=== PATIENT | male | born 1970 | race Two or more races ===

== ENCOUNTER 2024-08-23 07:51 | Inpatient (IN) | payer OTHER ==
[~2024-08-23] VITALS: Ht 160 cm; Wt 59.0 kg
[2024-08-23 09:00] VITALS: BP 128/85; TEMP 98.4; O2SAT 99
[2024-08-23] MEDS ORDERED: ARIP300S3 IM (09:07)
[2024-08-23] MEDS: ATORVASTATIN 10 MG TABLET PO SCH (09:48)
[2024-08-23] MEDS: ASPIRIN 81 MG TAB.CHEW PO SCH (09:48)
[2024-08-23] MEDS: ENOXAPARIN SODIUM 60 MG/0.6 ML DISP.SYRIN SQ SCH (10:06)
[2024-08-23] MEDS: METOPROLOL TARTRATE 50 MG TABLET PO SCH (11:48)
[2024-08-23 12:00] VITALS: BP 133/64; TEMP 98.6
[2024-08-23 12:45] LABS: CALCIUM, SERUM 8.5 mg/dL (8.5-10.1); CREATININE 0.8 mg/dL (0.6-1.3); POTASSIUM 4.2 mmol/L (3.5-5.1)
[2024-08-23] MEDS: ACETAMINOPHEN 650 MG/20.3 ML UDC NG PRN (15:07)
[2024-08-23 16:00] VITALS: BP 121/82; TEMP 98.4; O2SAT 99
[2024-08-23 20:22] VITALS: BP 115/88; TEMP 98.1; O2SAT 99
[2024-08-23 23:45] VITALS: BP 120/68; TEMP 98.2; O2SAT 96
[2024-08-24 04:13] VITALS: BP 137/93; TEMP 98.2; O2SAT 98
[2024-08-24 06:57] LABS: BASOPHILS # (AUTO) 0.1 K/uL (0.0-0.2); BASOPHILS % (AUTO) 0.9 % (0.0-2.0); EOSINOPHILS # (AUTO) 0.2 K/uL (0.0-0.7); EOSINOPHILS % (AUTO) 2.8 % (0.0-6.0); HEMATOCRIT 45 % (39-51); HEMOGLOBIN 15.1 g/dL (13.5-17.5); LYMPHOCYTES # (AUTO) 2.5 K/uL (0.8-4.8); LYMPHOCYTES % (AUTO) 40.5 % (20.0-44.0); MEAN CORPUSCULAR HEMOGLOBIN 31 PG (26.0-33.0); MEAN CORPUSCULAR HGB CONC 34 g/dl (31.0-36.0); MEAN CORPUSCULAR VOLUME 91 fL (80-96); MONOCYTES # (AUTO) 0.5 K/uL (0.1-1.30); MONOCYTES % (AUTO) 7.6 % (2.0-12.0); NEUTROPHILS % (AUTO) 48.2 % (43.0-81.0); PLATELET COUNT (AUTO) 155 K/uL (150-450); RED BLOOD CELL COUNT(AUTO) 4.91 MIL/uL (4.5-6.0); RED CELL DISTRIBUTION WIDTH 14.4 % (11.5-15.0); WHITE BLOOD COUNT (AUTO) 6.1 K/uL (4.3-11.0)
[2024-08-24 07:05] LABS: ALANINE AMINOTRANSFERASE 82 U/L (12-78); ALBUMIN 3.4 g/dL (3.4-5.0); ALKALINE PHOSPHATASE 78 U/L (46-116); ASPARTATE AMINOTRANSFERASE 25 U/L (15-37); BILIRUBIN,TOTAL 0.7 mg/dL (0.2-1.0); CALCIUM, SERUM 8.6 mg/dL (8.5-10.1); CARBON DIOXIDE 27 mmol/L (21-32); CHLORIDE 107 mmol/L (98-107); GLUCOSE 91 mg/dL (74-106); MAGNESIUM 1.8 mg/dL (1.8-2.4); PHOSPHORUS 3.5 mg/dL (2.5-4.9); POTASSIUM 3.9 mmol/L (3.5-5.1); SODIUM SERUM 140 mmol/L (136-145); TOTAL PROTEIN, SERUM 7.1 g/dL (6.4-8.2); UREA NITROGEN, BLOOD 10 mg/dL (7-18)
[2024-08-24 07:30] VITALS: BP 121/83; TEMP 98.4; O2SAT 100
[2024-08-24 09:33] LABS: CHOLESTEROL 197 mg/dL (<200); HDL CHOLESTEROL 52 mg/dL (40-60); LDL 119 mg/dL (0-99); TRIGLYCERIDES 130 mg/dL (30-150)
[2024-08-24] MEDS ORDERED: IOHEXOL-350 100 ML VIAL IV ONE (10:48)
[2024-08-24] MEDS ORDERED: CT SWABBABLE VALVE TRANS SET 1 EA INFUS.SET MC ONE (10:49)
[2024-08-24] MEDS ORDERED: NITROGLYCERIN 0.4 MG/TAB BOTTLE ONE (10:49)
[2024-08-24] MEDS ORDERED: IV NS 0.9% 250 ML IV ONE (10:49)
[2024-08-24] MEDS ORDERED: METOPROLOL TARTRATE INJ 5 MG/5 ML AMPUL IVP PRN (11:00)
[2024-08-24] MEDS: NITROGLYCERIN 0.4 MG/TAB BOTTLE SL ONE (11:02)
[2024-08-24 16:00] VITALS: BP 134/87; TEMP 98.4; O2SAT 99
[2024-08-24 20:00] VITALS: BP 123/107; TEMP 98.6; O2SAT 99
[2024-08-24 22:11] VITALS: BP 123/107; TEMP 98.6; O2SAT 99
[2024-08-25] VITALS: BP 127/87; TEMP 98.7; O2SAT 99
[2024-08-25 04:00] VITALS: BP 144/91; TEMP 98.1; O2SAT 99
[2024-08-25 08:00] VITALS: BP 130/84; TEMP 97.7; O2SAT 100
[2024-08-25 12:00] VITALS: BP 135/88; TEMP 99; O2SAT 100
[2024-08-25 16:00] VITALS: BP 132/90; TEMP 98.4; O2SAT 99
[2024-08-25 20:00] VITALS: BP 154/94; TEMP 97.9; O2SAT 100
[2024-08-26] VITALS (11 sets, daily range): BP systolic 108–154; BP diastolic 65–94; TEMP 97.9–98.4; O2SAT 97–100
[2024-08-26 06:49] LABS: INR 1.05 (0.91-1.10); PROTHROMBIN TIME 11.1 SECS (9.2-11.1)
[2024-08-26 07:01] LABS: BILIRUBIN,TOTAL 0.7 mg/dL (0.2-1.0); CALCIUM, SERUM 9.4 mg/dL (8.5-10.1); CREATININE 0.9 mg/dL (0.6-1.3); PHOSPHORUS 4.3 mg/dL (2.5-4.9); POTASSIUM 3.9 mmol/L (3.5-5.1); TOTAL PROTEIN, SERUM 8.2 g/dL (6.4-8.2)
[2024-08-26 07:04] LABS: BASOPHILS % (AUTO) 0.8 % (0.0-2.0); EOSINOPHILS # (AUTO) 0.2 K/uL (0.0-0.7); HEMATOCRIT 46 % (39-51); HEMOGLOBIN 15.6 g/dL (13.5-17.5); LYMPHOCYTES # (AUTO) 2.4 K/uL (0.8-4.8); LYMPHOCYTES % (AUTO) 40.2 % (20.0-44.0); MEAN CORPUSCULAR HEMOGLOBIN 31 PG (26.0-33.0); MEAN CORPUSCULAR HGB CONC 34 g/dl (31.0-36.0); MEAN CORPUSCULAR VOLUME 92 fL (80-96); MONOCYTES # (AUTO) 0.5 K/uL (0.1-1.30); MONOCYTES % (AUTO) 8.6 % (2.0-12.0); NEUTROPHILS # (AUTO) 2.9 K/uL (1.8-8.9); NEUTROPHILS % (AUTO) 47.4 % (43.0-81.0); RED BLOOD CELL COUNT(AUTO) 5.03 MIL/uL (4.5-6.0); RED CELL DISTRIBUTION WIDTH 14.4 % (11.5-15.0)
[2024-08-26 08:12] LABS: PLATELET COUNT (AUTO) 147 K/uL (150-450)
[2024-08-26] MEDS ORDERED: LIDOCAINE HCL/MPF 1% 30 ML VIAL IJ ONE (10:55)
[2024-08-26] MEDS ORDERED: IODIXANOL 150 ML IV ONE (10:55)
[2024-08-26] MEDS ORDERED: NITROGLYCERIN IN 5 % DEXTROSE 250 ML IV ONE (10:56)
[2024-08-26] MEDS ORDERED: IV NS 0.9% 500 ML IV ONE (11:25)
[2024-08-26] MEDS ORDERED: IV SET PRIMARY PUMP SET 1 EA INFUS.SET MC ONE (11:25)
[2024-08-26] MEDS ORDERED: MIDAZOLAM HCL 2 MG/2ML VIAL ONE (11:27)
[2024-08-26] MEDS ORDERED: FENTANYL PF 100MCG/2ML AMPUL ONE ×2 (11:27→12:20)
[2024-08-26] MEDS ORDERED: HEPARIN SODIUM, PORCINE 5000 UNITS/1 ML VIAL ONE (11:59)
[2024-08-26] MEDS ORDERED: TICAGRELOR 90 MG TABLET ONE (12:10)
[2024-08-26] MEDS ORDERED: METO200T3 PO (12:12)
[2024-08-26] MEDS ORDERED: ASPI-1169 PO (12:12)
[2024-08-26] MEDS ORDERED: ATOR10TA PO (12:12)
[2024-08-26] MEDS ORDERED: ADENOSINE 6 MG/2 ML VIAL ONE (12:25)
[2024-08-26] MEDS ORDERED: IV NS 0.9% 250 ML IV ONE (12:27)
[2024-08-26] MEDS ORDERED: IV NS 0.9% 100 ML BAG IV ONE (12:28)
[2024-08-26] MEDS ORDERED: IODIXANOL 320MG/ML 100 ML IV ONE (12:28)
[2024-08-26] MEDS ORDERED: HEPARIN SODIUM, PORCINE 1,000 UNIT/ML VIAL ONE (12:49)
[2024-08-26] MEDS: TICAGRELOR 90 MG TABLET PO SCH (17:27)
[2024-08-27] VITALS (12 sets, daily range): BP systolic 102–145; BP diastolic 60–92; TEMP 98.1–98.3; O2SAT 95–100
[2024-08-27] MEDS: METOPROLOL TARTRATE 50 MG TABLET PO SCH (08:20)
[2024-08-27] MEDS: ATORVASTATIN 10 MG TABLET PO SCH (08:20)
[2024-08-27] MEDS ORDERED: TICA90TA PO (10:58)
== END 2024-08-27 12:40 | disposition home or self-care (01) | DRG 174 ==
LOC: MED 07:51 → TELE 08:06 → ICU 08-26 13:38 → TELE1 08-27 09:13
PROVIDERS: ADMIT Internal Medicine
PROC: 027135Z Dilation of Coronary Artery, Two Arteries with Two Drug-eluting Intraluminal Devices, Percutaneous Approach (ICD-10-PCS; principal; 2024-08-26)
PROC: 4A023N7 Measurement of Cardiac Sampling and Pressure, Left Heart, Percutaneous Approach (ICD-10-PCS; 2024-08-26)
PROC: B211YZZ Fluoroscopy of Multiple Coronary Arteries using Other Contrast (ICD-10-PCS; 2024-08-26)
PROC: B44LZZZ Ultrasonography of Femoral Artery (ICD-10-PCS; 2024-08-26)
PROC: B34HZZZ Ultrasonography of Right Upper Extremity Arteries (ICD-10-PCS; 2024-08-26)
PROC: 02703ZZ Dilation of Coronary Artery, One Artery, Percutaneous Approach (ICD-10-PCS; 2024-08-26)
DX: I21.4 Non-ST elevation (NSTEMI) myocardial infarction (principal); F12.90 Cannabis use, unspecified, uncomplicated; I25.119 Atherosclerotic heart disease of native coronary artery with unspecified angina pectoris; F32.9 Major depressive disorder, single episode, unspecified; F41.9 Anxiety disorder, unspecified; I10 Essential (primary) hypertension; Z98.61 Coronary angioplasty status; F17.200 Nicotine dependence, unspecified, uncomplicated; I25.5 Ischemic cardiomyopathy; Z79.899 Other long term (current) drug therapy
CPT/HCPCS: 36415; 75574; 80048-TC; 80053-TC; 80061-TC; 82962-TC; 83735-TC; 84100-TC; 84484-TC; 85025-TC; 85347; 85610-TC; 85730-TC; 93307-TC; 94799-TC; A4223; G0378; J0153; J1644; J1650; J2250; J3010; J3490; J7030; J7040; J7050; Q9967

== ENCOUNTER 2024-08-27 18:13 | Inpatient (IN) | payer OTHER ==
[~2024-08-27] VITALS: Ht 165.1 cm; Wt 62.9 kg
[~2024-08-27 18:13] MED LIST: ARIP300S3 IM; ASPI-1169 PO; ATOR10TA PO; METO200T3 PO; TICA90TA PO
[2024-08-27 18:58] LABS: BASOPHILS % (AUTO) 0.6 % (0.0-2.0); EOSINOPHILS # (AUTO) 0.2 K/uL (0.0-0.7); EOSINOPHILS % (AUTO) 2.3 % (0.0-6.0); HEMATOCRIT 44 % (39-51); HEMOGLOBIN 14.9 g/dL (13.5-17.5); LYMPHOCYTES # (AUTO) 1.6 K/uL (0.8-4.8); LYMPHOCYTES % (AUTO) 18.2 % (20.0-44.0); MEAN CORPUSCULAR HEMOGLOBIN 31 PG (26.0-33.0); MEAN CORPUSCULAR HGB CONC 34 g/dl (31.0-36.0); MEAN CORPUSCULAR VOLUME 91 fL (80-96); MONOCYTES # (AUTO) 0.8 K/uL (0.1-1.30); MONOCYTES % (AUTO) 9.2 % (2.0-12.0); NEUTROPHILS # (AUTO) 6.1 K/uL (1.8-8.9); NEUTROPHILS % (AUTO) 69.7 % (43.0-81.0); PLATELET COUNT (AUTO) 149 K/uL (150-450); RED BLOOD CELL COUNT(AUTO) 4.85 MIL/uL (4.5-6.0); RED CELL DISTRIBUTION WIDTH 14.4 % (11.5-15.0); WHITE BLOOD COUNT (AUTO) 8.8 K/uL (4.3-11.0)
[2024-08-27] MEDS: IV NS 0.9% 1,000 ML BAG IV ONE ×2 (19:11)
[2024-08-27 19:38] LABS: CALCIUM, SERUM 9.3 mg/dL (8.5-10.1); CARBON DIOXIDE 29 mmol/L (21-32); CHLORIDE 103 mmol/L (98-107); CREATININE 1.1 mg/dL (0.6-1.3); GLUCOSE 109 mg/dL (74-106); POTASSIUM 4.8 mmol/L (3.5-5.1); SODIUM SERUM 140 mmol/L (136-145); UREA NITROGEN, BLOOD 21 mg/dL (7-18)
[2024-08-27] MEDS ORDERED: ACETAMINOPHEN 325 MG TABLET PO PRN (20:30)
[2024-08-27] MEDS ORDERED: ONDANSETRON HCL/PF 4 MG/2 ML VIAL IVP PRN (20:30)
[2024-08-27 21:35] VITALS: BP 111/76; TEMP 97.9; O2SAT 97
[2024-08-27] MEDS: IV NS 0.9% 1,000 ML IV PRN (22:09)
[2024-08-28] VITALS: BP 105/62; TEMP 97.7; O2SAT 100
[2024-08-28 04:00] VITALS: BP 110/63; TEMP 98.1; O2SAT 97
[2024-08-28 06:56] LABS: BASOPHILS % (AUTO) 0.3 % (0.0-2.0); EOSINOPHILS # (AUTO) 0.2 K/uL (0.0-0.7); EOSINOPHILS % (AUTO) 3.2 % (0.0-6.0); HEMATOCRIT 39 % (39-51); HEMOGLOBIN 13.1 g/dL (13.5-17.5); LYMPHOCYTES # (AUTO) 2.1 K/uL (0.8-4.8); LYMPHOCYTES % (AUTO) 28.1 % (20.0-44.0); MEAN CORPUSCULAR HEMOGLOBIN 31 PG (26.0-33.0); MEAN CORPUSCULAR HGB CONC 34 g/dl (31.0-36.0); MEAN CORPUSCULAR VOLUME 92 fL (80-96); MONOCYTES # (AUTO) 0.8 K/uL (0.1-1.30); MONOCYTES % (AUTO) 10.9 % (2.0-12.0); NEUTROPHILS # (AUTO) 4.3 K/uL (1.8-8.9); NEUTROPHILS % (AUTO) 57.5 % (43.0-81.0); PLATELET COUNT (AUTO) 135 K/uL (150-450); RED BLOOD CELL COUNT(AUTO) 4.24 MIL/uL (4.5-6.0); WHITE BLOOD COUNT (AUTO) 7.5 K/uL (4.3-11.0)
[2024-08-28 07:00] VITALS: BP 104/64; TEMP 98.1; O2SAT 99
[2024-08-28 07:10] LABS: PHOSPHORUS 3.2 mg/dL (2.5-4.9)
[2024-08-28 07:24] LABS: CALCIUM, SERUM 8.4 mg/dL (8.5-10.1); CREATININE 0.8 mg/dL (0.6-1.3); POTASSIUM 3.8 mmol/L (3.5-5.1)
[2024-08-28] MEDS: METOPROLOL SUCCINATE 50 MG TAB.SR.24H PO SCH (08:57)
[2024-08-28] MEDS: ASPIRIN 81 MG TAB.CHEW PO SCH (08:58)
[2024-08-28] MEDS: TICAGRELOR 90 MG TABLET PO SCH (08:58)
[2024-08-28] MEDS: ATORVASTATIN 10 MG TABLET PO SCH (08:58)
[2024-08-28] MEDS: PANTOPRAZOLE 40 MG VIAL IV SCH (08:58)
[2024-08-28 09:05] VITALS: BP_SYST 114; BP_SYST 92; BP_SYST 99; BP_DIAS 67; BP_DIAS 70; BP_DIAS 83
[2024-08-28 12:00] VITALS: BP 104/71; TEMP 98; O2SAT 99
[2024-08-28 16:08] VITALS: BP 107/71; TEMP 98.4; O2SAT 98
== END 2024-08-28 20:10 | disposition home or self-care (01) | DRG 48 ==
LOC: ER 18:13 → TELE 21:26
PROVIDERS: ATTEND Student in an Organized Health Care Education/Training Program
DX: G90.89 Other disorders of autonomic nervous system (principal); E86.0 Dehydration; I25.10 Atherosclerotic heart disease of native coronary artery without angina pectoris; I10 Essential (primary) hypertension; Z79.899 Other long term (current) drug therapy; Z79.82 Long term (current) use of aspirin; R79.89 Other specified abnormal findings of blood chemistry; Z95.5 Presence of coronary angioplasty implant and graft; F17.210 Nicotine dependence, cigarettes, uncomplicated; F12.90 Cannabis use, unspecified, uncomplicated; Z79.02 Long term (current) use of antithrombotics/antiplatelets
CPT/HCPCS: 36415; 70450-TC; 71045-TC; 80048-TC; 83735-TC; 84100-TC; 84484-TC; 85025-TC; 93880-TC; 97110-TC; 97116-TC; 97530-TC; A4223; G0378; G0480; J2470; J7030